=== PATIENT | female | born 1975 ===

== ENCOUNTER 2020-04-22 07:50 | Observation (INO) | payer OTHER, SELFPAY ==
[2020-04-22] VITALS (18 sets, daily range): BP systolic 109–140; BP diastolic 67–87; PULSE 67–98; RESP 13–18; TEMP 36.1–36.7; O2SAT 93–100; BMI 36.3
--- NOTE | 2020-04-22 | PATH_ITS ---
[facility] Accession Number: [id number] . 01 Material submitted: . hernia - UMBILICAL HERNIA SAC . 01 Clinical history: . ABDOMINAL HERNIA CAUSING A LOT OF PAIN . 02 Diagnosis: Umbilical Hernia Sac, Biopsy: Fibrovascular and adipose tissue consistent with hernia sac. [facility] 04/25/2020 1626 Local . 02 Electronically signed: . Marah Spivey MD, Pathologist NPI- [id number] . 01 Gross description: . Received in formalin, labeled umbilical hernia sac, and consists of a 6.0 x 5.5 x 2.2 cm mensah-pink fragment of soft tissue with attached mensah-yellow lobulated adipose tissue. Industrial [employer] sections are submitted in cassette A1. (EA/[id number]) /MRV 04/24/2020 1426 Local . 02 Pathologist provided ICD-10: K42.9 . 02 CPT . 603267 Performed at: 01 [facility] [address] [facility], [place], [place] [id number] MD Eliazar Alcantara MD Phone: [phone] Performed at: 02 [facility] [address] [place], [place] [id number] MD Marah Spivey MD Phone: [phone]
--- NOTE | 2020-04-22 07:55 | ED.ABDPAIN ---
HPI - Abdominal Pain General Chief Complaint: Abdominal Pain Stated Complaint: Abdominal hernia causing a lot of pain Time Seen by Provider: 04/22/20 07:55 Source: patient and family Mode of arrival: Ambulatory Limitations: no limitations History of Present Illness HPI narrative: 44-year-old female nonsmoker with longstanding history of an umbilical hernia presents with a chief complain of a day or 2 of increasing, now severe umbilical pain along with nausea and decreased bowel movements. She has had no fever chills and denies any vomiting. Her pain is worse with motion and improves with rest. She states has never caused her trouble before and has never received in evaluation for hernia. Her only abdominal surgery previously is a laparoscopic evaluation of an ovarian cyst. She has had 6 children, but all vaginally. She has been NPO since 8:00 p.m.. MD complaint: abdominal pain Onset (ago): hour(s) Pain Consistency: constant Location: periumbilical Severity: severe Severity scale (1-10): 10 Quality: cramping, stabbing and aching Radiation: none Migration to: no migration Relieving factors: nothing Exacerbating factors: nothing Associated symptoms: denies other symptoms Related Data Previous Rx's Medication Instructions Recorded acetaminophen [Tylenol] 650 mg PO QID PRN #60 cap 04/22/20 oxycodone 5 mg PO Q6H PRN #30 tab 04/22/20 Allergies Allergy/AdvReac Type Severity Reaction Status Date / Time No Known Drug Allergies Allergy Verified 04/22/20 08:31 Review of Systems Constitutional Constitutional: Denies chills, Denies fatigue, Denies fever(s), Denies frequent falls, Denies lethargy and Denies weakness Eyes Eyes: Denies change in vision, Denies eye discharge, Denies irritation and Denies loss of vision ENT Ears, Nose, Mouth, and Throat: Denies change in voice, Denies dizziness, Denies neck pain, Denies sore throat and Denies throat swelling Cardiovascular Cardiovascular: Denies chest pain, Denies irregular heart rhythm, Denies lightheadedness, Denies palpitations, Denies dyspnea, Denies dyspnea on exertion and Denies orthopnea Respiratory Respiratory: Denies cough, Denies dyspnea, Denies dyspnea on exertion and Denies wheezing Gastrointestinal Gastrointestinal: Reports abdominal pain, Denies change in bowel habits, Denies diarrhea, Reports nausea and Denies vomiting Musculoskeletal Musculoskeletal: Denies neck pain and Denies numbness Integumentary/Breasts Skin/Breast: Denies pruritus, Denies erythema, Denies rash and Denies wounds Neurologic Neurologic: Denies behavioral changes, Denies confusion, Denies dizziness, Denies frequent falls, Denies loss of vision, Denies numbness and Denies weakness Psychiatric Psychiatric: Denies anxiety, Denies behavioral changes, Denies confusion, Denies depression, Denies homicidal ideation and Denies suicidal ideation Endocrine Endocrine: Denies fatigue, Denies flushing and Denies palpitations Hematologic/Lymphatic Hematologic/Lymphatic: Denies easy bruising Allergic/Immunologic Allergic/Immunologic: Denies urticaria, Denies throat swelling and Denies wheezing Patient History Social History Smoking Status: Never smoker Smoking Status: Never smoker alcohol intake frequency: 0-2 drinks per day Substance Use Type: does not use Exam Narrative Exam Narrative: GENERAL: [44] year old patient appears stated age. Well-nourished, well-developed patient, in mild distress. Obviously in pain HEAD: Atraumatic. Normocephalic. EYES: Pupils equal round and reactive. Extraocular motions intact. No scleral icterus. No injection or drainage. ENT: Nose without bleeding, purulent drainage. Throat without erythema, tonsillar hypertrophy or exudate. Airway patent. NECK: Trachea midline. Non tender CARDIOVASCULAR: Regular rate and rhythm without murmurs, gallops, or rubs. RESPIRATORY: Clear to auscultation. Breath sounds equal bilaterally. No wheezes, rales, or rhonchi. GASTROINTESTINAL: Abdomen soft, non reducible periumbilical hernia, incredibly tender, mild overlying erythema., nondistended. EXTREMITIES: No edema or joint tenderness. BACK: Nontender without deformity or crepitance. No flank tenderness. NEURO: AOx3. SKIN: No rash or erythema of visible areas Initial Vital Signs Initial Vital Signs: Vital Signs Pulse Rate 88 04/22/20 07:58 Pulse Oximetry 99 04/22/20 07:58 Course Orders Ordered: ED Orders 04/22/20 07:58 XR acute abdomen series Stat 04/22/20 08:24 Basic Metabolic Panel Stat Complete Blood Count AUTO DIFF Stat Lactate (Lactic Acid) Stat 04/22/20 08:59 CT abdomen pelvis w con Stat 04/22/20 09:31 COVID19 -ED/INPAT/OR/L&D Stat Fentanyl (Sublimaze) 0 mcg IV Q5M PRN PRN Reason: Pain, Severe (7-10) Fentanyl (Sublimaze) 0 mcg IV Q5M PRN PRN Reason: Pain, Moderate (4-6) Fentanyl (Sublimaze) 0 mcg IV Q5MIN PRN PRN Reason: Pain, Mild (1-3) Lactated Ringer's (Lactated Ringers) 1,000 mls @ 42 mls/hr IV CONT MANUEL Last Admin: 04/22/20 11:20 Dose: 42 mls/hr Documented by: ENRIQUE Meperidine HCl (Demerol) 12.5 mg IV PACUNOW PRN PRN Reason: Mild pain or shivering Metoclopramide HCl (Reglan) 10 mg IV NOW PRN PRN Reason: Nausea And Vomiting Last Admin: 04/22/20 12:45 Dose: 10 mg Documented by: ENRIQUE Ondansetron HCl (Zofran) 4 mg IV NOW PRN PRN Reason: Nausea And Vomiting Last Admin: 04/22/20 12:45 Dose: 4 mg Documented by: ENRIQUE Oxycodone HCl (Percolone) 5 mg PO PACUNOW PRN PRN Reason: Mild or moderate pain Discontinued Medications Bupivacaine HCl (Sensorcaine 0.25% (Pf)) 30 ml INJ NOW ONE Stop: 04/22/20 11:44 Last Admin: 04/22/20 11:43 Dose: 20 ml Documented by: LAUREN Sodium Chloride (Normal Saline 0.9%) 1,000 mls @ 1,000 mls/hr IV BOLUS ONE Stop: 04/22/20 09:00 Last Infusion: 04/22/20 09:50 Dose: 0 mls/hr Documented by: Admin: 04/22/20 08:47 Dose: 1,000 mls/hr Documented by: AGUILAR Cefazolin Sodium/Dextrose (Ancef) 2 gm in 100 mls @ 200 mls/hr IV NOW ONE Stop: 04/22/20 11:43 Last Infusion: 04/22/20 11:29 Dose: 0 mls/hr Documented by: J LUIS Admin: 04/22/20 11:20 Dose: 200 mls/hr Documented by: J LUIS Acetaminophen (Ofirmev) 1,000 mg in 100 mls @ 400 mls/hr IV NOW ONE Stop: 04/22/20 11:59 Last Infusion: 04/22/20 12:09 Dose: 0 mls/hr Documented by: Admin: 04/22/20 11:45 Dose: 400 mls/hr Documented by: J LUIS Midazolam HCl (Versed) 2 mg IV NOW ONE Stop: 04/22/20 08:24 Last Admin: 04/22/20 08:47 Dose: 2 mg Documented by: AGUILAR Vital Signs Vital signs: Vital Signs - 8 hr 04/22/20 07:58 04/22/20 07:59 04/22/20 08:00 Temperature 98.0 F Pulse Rate 88 89 84 Respiratory Rate 16 Blood Pressure 140/87 Pulse Oximetry 99 99 99 04/22/20 08:46 04/22/20 08:50 04/22/20 08:58 Temperature Pulse Rate 74 73 84 Respiratory Rate Blood Pressure 113/70 110/69 Pulse Oximetry 99 98 98 04/22/20 09:00 04/22/20 09:30 04/22/20 10:00 Temperature Pulse Rate 77 77 67 Respiratory Rate Blood Pressure 109/67 Pulse Oximetry 95 100 99 04/22/20 10:30 Temperature Pulse Rate 71 Respiratory Rate Blood Pressure Pulse Oximetry 96 MDM - Abdominal Pain Lab Data Result diagrams: 04/22/20 08:24 04/22/20 08:24 Labs: Lab Results 04/22/20 04/22/20 04/22/20 Range/Units 08:24 08:24 08:24 WBC 8.8 (4.5-11.0) X10^3/uL RBC 4.06 (4.0-5.2) X10^6/uL Hgb 9.5 L (12.0-16.0) g/dL Hct 29.9 L (36-46) % MCV 73.6 L (80-100) fL MCH 23.5 L (26-34) PG MCHC 31.9 (30-36) % RDW 17.0 H (11.6-14.8) % Plt Count 323 (150-400) X10^3/uL Neut % (Auto) 69.0 (50-75) % Lymph % (Auto) 19.8 L (25-40) % [place] % (Auto) 6.1 (3-14) % Eos % (Auto) 4.6 H (2-4) % Baso % (Auto) 0.5 (0-2) % Neut # (Auto) 6100 (6335-1708) /uL Lymph # (Auto) 1700 (7579-2137) /uL [place] # (Auto) 500 (0-900) /uL Eos # (Auto) 400 (0-450) /uL Baso # (Auto) 0 (0-100) /uL Sodium 136 L (137-145) mmol/L Potassium 3.7 (3.4-5.1) mmol/L Chloride 103 (98-107) mmol/L Carbon Dioxide 26 (22-32) mmol/L BUN 14 (7-17) mg/dL Creatinine 0.65 (0.52-1.04) mg/dL Estimated GFR > 60.0 (>60) mL/min BUN/Creatinine Ratio 21.5 (6-22) Glucose 102 H (70-100) mg/dL Lactate 1.0 (0.7-2.1) mmol/L Calcium 8.8 (8.4-10.2) mg/dL COVID-19 PCR (Negative) 04/22/20 Range/Units 09:31 WBC (4.5-11.0) X10^3/uL RBC (4.0-5.2) X10^6/uL Hgb (12.0-16.0) g/dL Hct (36-46) % MCV (80-100) fL MCH (26-34) PG MCHC (30-36) % RDW (11.6-14.8) % Plt Count (150-400) X10^3/uL Neut % (Auto) (50-75) % Lymph % (Auto) (25-40) % [place] % (Auto) (3-14) % Eos % (Auto) (2-4) % Baso % (Auto) (0-2) % Neut # (Auto) (0313-9697) /uL Lymph # (Auto) (6573-8633) /uL [place] # (Auto) (0-900) /uL Eos # (Auto) (0-450) /uL Baso # (Auto) (0-100) /uL Sodium (137-145) mmol/L Potassium (3.4-5.1) mmol/L Chloride (98-107) mmol/L Carbon Dioxide (22-32) mmol/L BUN (7-17) mg/dL Creatinine (0.52-1.04) mg/dL Estimated GFR (>60) mL/min BUN/Creatinine Ratio (6-22) Glucose (70-100) mg/dL Lactate (0.7-2.1) mmol/L Calcium (8.4-10.2) mg/dL COVID-19 PCR Negative (Negative) Point of care testing: Urine Dip Bedside Urine Glucose Negative Bedside Urine Bilirubin - Negative Bedside Urine Ketone - Negative Urine Specific [place] 1.020 Bedside Urine Occult Blood + Bedside Urine pH 6.0 Bedside Urine Protein - Negative Bedside Urine Urobilinogen - Negative Bedside Urine Nitrite - Negative Bedside Urine Leukocytes - Negative Esterase Imaging Data CT scan - abdomen/pelvis: Radiologist's Impression: 4 DO Carmelo Sellers Patient Imaging - Claribel Oconnor 44 F 1975 ACTIVITY DATE EXAM STATUS AUTHOR 04/22/20 08:59 [place] 04/22/20 07:58 [place] [address] CT Scan Report Signed Patient: Aruna Oconnor#: [id number] : 1975Acct:[id number] Age/Sex: 44 / FDate of Service: 04/22/20 Loc: ED Accession Number: [id number] Procedure: CT abdomen pelvis w con Ordering Provider: Raciel Aleman D.O. PROCEDURE: CT ABDOMEN PELVIS W CON INDICATIONS: incarcerated umbilical hernia, failed reduction, per surger TECHNIQUE: After the administration of intravenous contrast, 5 mm thick sections acquired from the diaphragm to the symphysis. 5 mm coronal and sagittal reformats were acquired. For radiation dose reduction, the following was used: automated exposure control, adjustment of mA and/or kV according to patient size. COMPARISON: None. FINDINGS: Image quality: Excellent. ABDOMEN: Lung bases: Lung bases are clear. Heart size is normal. Solid organs: Liver is normal in size and enhancement. Gallbladder is unremarkable. Biliary system is non dilated. Pancreas enhances normally. Spleen is normal in size and enhancement. No adrenal nodules. Kidneys demonstrate normal size and enhancement, without hydronephrosis. There is a large exophytic fat containing tumor off the inferior tip of the left kidney, consistent with an angiomyolipoma which measures 3.9 by 5.2 x 3.8 cm. There is a Bosniak 2 large exophytic cyst posteriorly off the upper pole of the left kidney which measures approximately 8.5 x 8.8 x 9.7 cm. There is an anterior cyst in the same location off the left kidney which measures approximately 7.2 cm maximum diameter. Peritoneum and bowel: Bowel loops demonstrate normal wall thickness and caliber. No free fluid or air. Normal appendix. Nodes and vessels: No retroperitoneal or mesenteric adenopathy by size criteria. Aorta and inferior vena cava are normal in size. Miscellaneous: There is a periumbilical hernia containing fat and inflammatory change suggesting possible incarcerated fat. Slightly superior to this, in the mesenteric fat, to the right of midline, is an area inflammatory change in the fat, possibly representing an area of epiploic appendagitis. PELVIS: Genitourinary: Bladder wall thickness is normal. Miscellaneous: No inguinal hernias or adenopathy. Left adnexal cyst measuring 3.5 cm in diameter. Prominent endometrium, measuring approximately 2.3 cm in diameter. Bones: No suspicious bony lesions. No vertebral body compression fractures. IMPRESSION: 1. Periumbilical hernia with inflammatory change in the fat suggesting possible incarcerated fat. 2. Question area of epiploic appendagitis slightly inferior of the umbilicus and to the right of midline. 3. 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 This is of sufficient size for consideration of prophylactic embolization to decrease the risk of spontaneous hemorrhage. Consider interventional radiology consultation with Dr. Leal. 4. Prominent endometrial cavity. Comment: Findings were discussed with Dr. Aleman at the time of study dictation. Dictated by: Husam Leal M.D. on 04/22/2020 at 8:42 Approved by: Husam Leal M.D. on 04/22/2020 at 8:54 Discharge Plan Departure Patient Disposition: Admitted to Surgery Clinical Impression: Incarcerated umbilical hernia Discharge Date/Time: 04/22/20 11:10 Admit Date/Time: 04/22/20 11:08 Admit Provider: Donta Alas
--- NOTE | 2020-04-22 07:58 | DI.RAD.S_ITS ---
PROCEDURE: XR ACUTE ABDOMEN SERIES INDICATIONS: Abdominal pain, No BM TECHNIQUE: One view chest and two views of the abdomen were acquired. COMPARISON: None. FINDINGS: Surgical changes and devices: None. Chest: Lungs are clear. Heart size is normal. No pleural effusions. No pneumoperitoneum. Abdomen: Bowel gas pattern is normal. No suspicious calcifications. Visualized solid organ contours appear normal. Large amount of fecal debris. Bones: No suspicious bony lesions. IMPRESSION: 1. Large fecal load. 2. Normal bowel gas pattern. 3. No evidence acute pulmonary process. Dictated by: Husam Leal M.D. on 04/22/2020 at 7:43 Approved by: Husam Leal M.D. on 04/22/2020 at 7:44
[2020-04-22 08:44] LABS: Add Manual Diff / Slide Review NO; Basophils Absolute Auto 0 /uL (0-100); Basophils Percent Auto 0.5 % (0-2); Eosinophils Absolute Auto 400 /uL (0-450); Eosinophils Percent Auto 4.6 % (2-4); Hematocrit 29.9 % (36-46); Hemoglobin 9.5 g/dL (12.0-16.0); Lymphocytes Absolute Auto 1700 /uL (1100-4500); Lymphocytes Percent Auto 19.8 % (25-40); Mean Corpuscular HGB Conc 31.9 % (30-36); Mean Corpuscular Hemoglobin 23.5 PG (26-34); Mean Corpuscular Volume 73.6 fL (80-100); Monocytes Absolute Auto 500 /uL (0-900); Monocytes Percent Auto 6.1 % (3-14); Neutrophils Absolute Auto 6100 /uL (1500-7000); Platelet Count 323 X10^3/uL (150-400); Red Blood Cell Count 4.06 X10^6/uL (4.0-5.2); White Blood Cell Count 8.8 X10^3/uL (4.5-11.0)
[2020-04-22] MEDS: MIDAZOLAM 5 MG/ML VIAL 2 MG IV (08:47)
[2020-04-22] MEDS: SODIUM CHLORIDE 0.9% 1,000 ML 1000 ML IV (08:47)
[2020-04-22 08:54] LABS: BUN Creatinine Ratio 21.5 (6-22); Blood Urea Nitrogen 14 mg/dL (7-17); Calcium 8.8 mg/dL (8.4-10.2); Carbon Dioxide 26 mmol/L (22-32); Chloride 103 mmol/L (98-107); Estimated Glomerular Filt Rate > 60.0 mL/min (>60); Glucose 102 mg/dL (70-100); HEMOLYSIS < 15 (0-50); Potassium 3.7 mmol/L (3.4-5.1); Sodium 136 mmol/L (137-145)
--- NOTE | 2020-04-22 08:59 | DI.CT.S_ITS ---
PROCEDURE: CT ABDOMEN PELVIS W CON INDICATIONS: incarcerated umbilical hernia, failed reduction, per surger TECHNIQUE: After the administration of intravenous contrast, 5 mm thick sections acquired from the diaphragm to the symphysis. 5 mm coronal and sagittal reformats were acquired. For radiation dose reduction, the following was used: automated exposure control, adjustment of mA and/or kV according to patient size. COMPARISON: None. FINDINGS: Image quality: Excellent. ABDOMEN: Lung bases: Lung bases are clear. Heart size is normal. Solid organs: Liver is normal in size and enhancement. Gallbladder is unremarkable. Biliary system is non dilated. Pancreas enhances normally. Spleen is normal in size and enhancement. No adrenal nodules. Kidneys demonstrate normal size and enhancement, without hydronephrosis. There is a large exophytic fat containing tumor off the inferior tip of the left kidney, consistent with an angiomyolipoma which measures 3.9 by 5.2 x 3.8 cm. There is a Bosniak 2 large exophytic cyst posteriorly off the upper pole of the left kidney which measures approximately 8.5 x 8.8 x 9.7 cm. There is an anterior cyst in the same location off the left kidney which measures approximately 7.2 cm maximum diameter. Peritoneum and bowel: Bowel loops demonstrate normal wall thickness and caliber. No free fluid or air. Normal appendix. Nodes and vessels: No retroperitoneal or mesenteric adenopathy by size criteria. Aorta and inferior vena cava are normal in size. Miscellaneous: There is a periumbilical hernia containing fat and inflammatory change suggesting possible incarcerated fat. Slightly superior to this, in the mesenteric fat, to the right of midline, is an area inflammatory change in the fat, possibly representing an area of epiploic appendagitis. PELVIS: Genitourinary: Bladder wall thickness is normal. Miscellaneous: No inguinal hernias or adenopathy. Left adnexal cyst measuring 3.5 cm in diameter. Prominent endometrium, measuring approximately 2.3 cm in diameter. Bones: No suspicious bony lesions. No vertebral body compression fractures. IMPRESSION: 1. Periumbilical hernia with inflammatory change in the fat suggesting possible incarcerated fat. 2. Question area of epiploic appendagitis slightly inferior of the umbilicus and to the right of midline. 3. 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 This is of sufficient size for consideration of prophylactic embolization to decrease the risk of spontaneous hemorrhage. Consider interventional radiology consultation with Dr. Leal. 4. Prominent endometrial cavity. Comment: Findings were discussed with Dr. Aleman at the time of study dictation. Dictated by: Husam Leal M.D. on 04/22/2020 at 8:42 Approved by: Husam Leal M.D. on 04/22/2020 at 8:54
[2020-04-22 09:53] LABS: COVID19 -Nasal RAPID Negative (Negative)
--- NOTE | 2020-04-22 11:09 | PM.HP.1 ---
History of Present Illness History of Present Illness Date Patient Seen: 04/22/20 Time Patient Seen: 11:09 Chief complaint: Abdominal hernia causing a lot of pain Narrative: 44-year-old woman evaluated for a incarcerated umbilical hernia. Umbilical hernia present for the past at 18 years however today and it became increasingly painful. In the emergency room she underwent a CT abdomen pelvis which demonstrates a umbilical hernia with some inflammatory changes no bowel observed within the hernia. An attempt was made to manual reduction with conscious sedation which was unsuccessful. Medical history is significant for prior transverse incision laparotomy for hemorrhagic cyst and obesity. Patient History Family & Social History Safety & Behavioral: Feels Safe in Current Yes Environment Been Physically Hurt or No Threatened By a Person Tobacco & Substance use: Smoking Status Never smoker alcohol intake frequency 0-2 drinks per day Substance Use Type does not use Meds Home Medications and Allergies Allergies Allergy/AdvReac Type Severity Reaction Status Date / Time No Known Drug Allergies Allergy Verified 04/22/20 08:31 Review of Systems Review of Systems ROS: Yes All systems reviewed with the patient and are negative except as otherwise documented Exam Vital Signs (past 8 hours): - 04/22/20 07:58 04/22/20 07:59 04/22/20 08:00 Temperature 98.0 F Pulse Rate 88 89 84 Respiratory Rate 16 Blood Pressure 140/87 Pulse Oximetry 99 99 99 04/22/20 08:46 04/22/20 08:50 04/22/20 08:58 Temperature Pulse Rate 74 73 84 Respiratory Rate Blood Pressure 113/70 110/69 Pulse Oximetry 99 98 98 04/22/20 09:00 04/22/20 09:30 04/22/20 10:00 Temperature Pulse Rate 77 77 67 Respiratory Rate Blood Pressure 109/67 Pulse Oximetry 95 100 99 04/22/20 10:30 Temperature Pulse Rate 71 Respiratory Rate Blood Pressure Pulse Oximetry 96 Oxygen Delivery Method Room Air Narrative Exam Narrative: Gen-Adult female AO x 3 Chest-Non labored resp Cardiac-RRR Abdomen-Incacerated umbilical hernia unable to manually reduce tender to palpation Ext-WWP Objective Labs Result Diagrams: 04/22/20 08:24 04/22/20 08:24 Labs: Laboratory Results - last 24 hr 04/22/20 04/22/20 04/22/20 08:24 08:24 08:24 WBC 8.8 RBC 4.06 Hgb 9.5 L Hct 29.9 L MCV 73.6 L MCH 23.5 L MCHC 31.9 RDW 17.0 H Plt Count 323 Neut % (Auto) 69.0 Lymph % (Auto) 19.8 L [place] % (Auto) 6.1 Eos % (Auto) 4.6 H Baso % (Auto) 0.5 Neut # (Auto) 6100 Lymph # (Auto) 1700 [place] # (Auto) 500 Eos # (Auto) 400 Baso # (Auto) 0 Sodium 136 L Potassium 3.7 Chloride 103 Carbon Dioxide 26 BUN 14 Creatinine 0.65 Estimated GFR > 60.0 BUN/Creatinine Ratio 21.5 Glucose 102 H Lactate 1.0 Calcium 8.8 COVID-19 PCR 04/22/20 09:31 WBC RBC Hgb Hct MCV MCH MCHC RDW Plt Count Neut % (Auto) Lymph % (Auto) [place] % (Auto) Eos % (Auto) Baso % (Auto) Neut # (Auto) Lymph # (Auto) [place] # (Auto) Eos # (Auto) Baso # (Auto) Sodium Potassium Chloride Carbon Dioxide BUN Creatinine Estimated GFR BUN/Creatinine Ratio Glucose Lactate Calcium COVID-19 PCR Negative Assessment & Plan Assessment & Plan narrative: 44-year-old female history of obesity here with an incarcerated umbilical hernia. Unable to reduce hernia with conscious sedation recommended that we proceed to the operating room for an open umbilical hernia repair possibly with mesh. We discussed technical nature of the operation including the operative risks of bleeding infection recurrence damage to surrounding structures. Questions have been answered she is in agreement with this plan and will proceed to the operating room COVID-19 COVID-19 status: Negative
[2020-04-22] MEDS: LACTATED RINGERS 1,000 ML 42 ML IV (11:20)
[2020-04-22] MEDS: CEFAZOLIN 2 GM/100 ML FROZ.PIGGY IV (11:20)
--- NOTE | 2020-04-22 11:38 | SUR.OPER ---
Supine on padded OR bed, head on pillow, arms secured on padded arm boards at <90 degrees abduction, legs uncrossed, safety belt at thigh, tape over blanket over lower legs.
[2020-04-22] MEDS: BUPIVACAINE 0.25% (PF) VIAL 30 ML INJ (11:43)
[2020-04-22] MEDS: ACETAMINOPHEN IV 1,000 MG/100 ML VIAL 400 MG IV (11:45)
--- NOTE | 2020-04-22 12:37 | PM.OP.1 ---
Operative Date/Time/Diagnoses Date of procedure: 04/22/20 Time of procedure: 12:37 Pre-op diagnosis: Incarcerated umbilical hernia Post-op diagnosis: same Procedure & Clinicians Procedure: Open umbilical hernia repair with mesh of incarcerated umbilical hernia Same procedure as scheduled: Yes Indications: 44-year-old woman with a chronic umbilical hernia presents with acute incarceration abdominal pain Surgeon: Donta Alas Anesthesia Type: General Operative Notes Findings: ischemic omentum within the hernia sac Specimen(s): other (The umbilical sac) Estimated Blood Loss (mL): 20 Procedure in detail: Patient was brought to the operating room placed supine on the table. Bilateral lower extremity compression devices were applied. General anesthesia was induced and they were intubated with an endotracheal tube. They received 2 g of Ancef prior to skin incision. They were prepped and draped in sterile fashion. A time-out was performed. A curvilinear incision was made inferior to the umbilicus. The subcutaneous tissues were divided. The umbilical hernia was identified and the hernia sac was dissected off the umbilicus and circumferentially off of the fascia defect. The hernia contained ischemic omentum. The hernia sac was ligated below the ischemic omentum and this was transected passed off the field as umbilical hernia sac. Using blunt dissection I carefully carefully freed the hernia sac from the underline peritoneum. The proximal portion of the umbilical sac reduced spontaneously into the abdomen. The fascia was cleared from it overlaying subcutaneous tissue in order to accommodate the mesh. The main fascia defect was 3 cm in maximal diameter. The fascia edges were then reapproximated with a [id number] 0 PDS suture. A Bard Ventralex ST hernia patch 6.3 cm was inserted over the fascia defect. It was secured to the fascia using 0 Prolene suture in interrupted fashion in all 4 quadrants. The subcutaneous tissues were reapproximated using 3 0 Vicryl skin closed with 4 0 Monocryl upon by the application of Dermabond and Steri-Strips. Sponge instrument count at the end of the operation was correct. Patient tolerated procedure well was extubated and transferred to postoperative care unit in stable condition. Complications: none Post-operative Condition: stable Disposition: same day surgery
[2020-04-22] MEDS: METOCLOPRAMIDE 10 MG/2 ML INJ IV (12:45)
[2020-04-22] MEDS: ONDANSETRON 4 MG/2 ML INJ IV (12:45)
[2020-04-22] MEDS: OXYCODONE IR 5 MG TABLET PO (13:04)
== END 2020-04-22 13:37 | disposition home or self-care (01) ==
LOC: ED 11:05 → AC 11:09
PROVIDERS: Admitting Provider Surgery; Emergency Provider Emergency Medicine; Referring Provider Emergency Medicine; Visit Provider Surgery
PROC: (CPT 49587; principal; 2020-04-22 11:45)
DX: K42.0 Umbilical hernia with obstruction, without gangrene (principal); Z11.59 Encounter for screening for other viral diseases
CPT/HCPCS: 49587; 36415; 74022; 74177; 80048; 81003; 83605; 85025; 87635; 96361; 96374; 96375; 99219; 99284; C1781; G0378; J0131; J0330; J0690; J1100; J1885; J2250; J2405; J2704; J2765; J3010; Q9967

== ENCOUNTER 2022-06-17 16:46 | Emergency (ER) | payer OTHER, SELFPAY ==
[2022-06-17 16:51] VITALS: BP 146/70; PULSE 77; RESP 18; TEMP 36.7; O2SAT 100
--- NOTE | 2022-06-17 20:00 | DI.CT.S_ITS ---
PROCEDURE: CT ANGIO HEAD AND NECK INDICATIONS: worst headache of life after carrying heavy box TECHNIQUE: Pre-contrast 4.5 mm thick sections acquired from the foramen magnum to the vertex. After the administration of intravenous contrast, 1 mm thick sections acquired from the aortic arch through the [place] of [place]. Post-contrast 4.5 mm thick sections then re-acquired from the foramen magnum to the vertex. 3-dimensional [id number]-lxhwswakqv (MIP) and/or volume rendering reformats were acquired of the central intracranial vasculature and neck separately. For radiation dose reduction, the following was used: automated exposure control, adjustment of mA and/or kV according to patient size. COMPARISON: None. FINDINGS: Image quality: Excellent. BRAIN: CSF spaces: Ventricles are normal in size and shape. Basal cisterns are patent. No extra-axial fluid collections. Brain: No midline shift. No intracranial bleeds or masses. Dias-white matter interface appears intact. No abnormal intracranial enhancement. Skull and face: Calvarium and facial bones appear intact, without suspicious lesions. Orbits appear normal. Sinuses: Sinuses and mastoids are clear. HEAD CT ANGIOGRAPHY: Anterior circulation: Intracranial internal carotid arteries are normal in size and flow. The flow within the paired anterior cerebral arteries is normal and symmetric. The flow within the middle cerebral arteries is normal and symmetric. The anterior communicating artery is seen. No aneurysms are seen. Posterior circulation: Visualized portions of the vertebral arteries demonstrate normal caliber, and join to form a normal appearing basilar artery. Flow within the posterior cerebral arteries is normal and symmetric. No aneurysms are seen. NECK CT ANGIOGRAPHY: Carotid system: The great vessels demonstrate a conventional anatomy as they arise from the aortic arch. The origins of the common carotid arteries appear patent. The common carotid arteries demonstrate normal caliber and courses. The bifurcation regions are both widely patent. The internal carotid arteries demonstrate normal calibers and courses. Posterior circulation: The origins of the vertebral arteries both appear widely patent. The more superior extracranial portions of both vertebral arteries also demonstrate normal courses and calibers. They join to form a normal appearing basilar artery. Soft tissues: Visualized neck soft tissues demonstrate no suspicious abnormalities. Bones: No suspicious bony lesions. Visualized cervical spine appears normally aligned. IMPRESSION: 1. No acute intracranial abnormality. 2. No high grade stenosis or occlusion of the central intracranial arteries or head and neck arteries. 3. No evidence of cerebral aneurysm. Any quantitative measurements of stenosis were performed using NASCET criteria. Dictated by: Eliazar Schneider M.D. on 06/17/2022 at 21:34 Approved by: Eliazar Schneider M.D. on 06/17/2022 at 21:44
--- NOTE | 2022-06-17 20:06 | ED_ITS ---
HPI - Headache General Chief Complaint: Headache Stated Complaint: headache after carrying a heavy box Time Seen by Provider: 06/17/22 19:46 Mode of arrival: Ambulatory History of Present Illness HPI Narrative: Patient is a healthy 46-year-old female with no past medical history presenting today with persistent headache. She said she got the worse headache of her life yesterday after caring a heavy box across a parking lot. She said it was in the back of her head. She felt extreme pressure and pain. She just waited for it to go away she had no nausea vomiting numbness tingling or weakness. She is not on any anti-platelet or anticoagulation medication. At today she noted while she was in the shower she bent out today for legs and she could not state every long the pressure in her head was getting worse. She overall does not feel very well. She did not take any medication for it. Related Data Previous Rx's Medication Instructions Recorded acetaminophen 325 mg capsule 650 mg PO QID PRN pain #60 caps 04/22/20 (Tylenol) oxycodone 5 mg tablet 5 mg PO Q6H PRN pain #30 tabs 04/22/20 Allergies Allergy/AdvReac Type Severity Reaction Status Date / Time No Known Drug Allergies Allergy Verified 05/09/20 13:18 Review of Systems Review of Systems Narrative: GENERAL: Denies chills, fatigue, malaise, fever, sweats, travel HEENT: Denies sinus pain, ear pain, sore throat, difficulty swallowing, neck pain RESPIRATORY: Denies dyspnea, cough, wheezing, hemoptysis, sputum. CARDIOVASCULAR: Denies chest pain, palpitations, orthopnea, edema GASTROINTESTINAL: Denies nausea, vomiting, abdominal pain, diarrhea, constipation, melena. : Denies dysuria, frequency, incontinence, hematuria, urinary retention, flank pain. MUSCULOSKELETAL: Denies weakness, joint pain, or bony pain SKIN: No rash, no erythema, no pruritus NEUROLOGIC: See HPI PSYCHIATRIC: No concerning psychosocial issues. 12 point review of systems is negative except for those stated above and HPI Patient History Social History Smoking Status: Never smoker Smoking Status: Never smoker alcohol intake frequency: 0-2 drinks per day Substance Use Type: does not use Exam Initial Vital Signs Initial Vital Signs: Vital Signs Temperature 98.1 F 06/17/22 16:51 Pulse Rate 77 06/17/22 16:51 Respiratory Rate 18 06/17/22 16:51 Blood Pressure 146/70 H 06/17/22 16:51 Pulse Oximetry 100 06/17/22 16:51 Oxygen Delivery Method 06/17/22 16:51 GENERAL: Alert pleasant 6-year-old female and in no acute distress. HEENT: Head atraumatic,EOMI, pupils reactive, face symmetric, moist mucous membranes CARDIOVASCULAR: Regular rate and rhythm without murmurs, rubs or gallops. RESPIRATORY: Breath sounds equal bilaterally, no wheezes rales or rhonchi. ABDOMEN: Soft, nontender. Normoactive bowel sounds all 4 quadrants. No guarding or rebound. EXTREMITIES: Normal range of motion, no clubbing or edema. Neurovascularly intact NEUROLOGICAL: Alert and oriented x4.Normal gait and speech. Garment Fitter strength equal bilaterally lower extremity strength equal face is symmetric SKIN: Warm, dry, no laceration, no petechiae, no rashes or lesions. Scores NIH Stroke Scale Level of Conciousness: Alert, keenly responsive Ask month/age: Answers both questions correctly. Open/close eyes, close hand: Performs both tasks correctly Best gaze horizontal: Normal Visual keller: No visual loss Facial palsy: Normal symetrical movement Left arm drift: No drift for full 10 sec Right arm drift: No drift for full 10 sec Left leg drift: No drift for full 5 sec Right leg drift: No drift for full 5 sec Limb ataxia: Absent Sensory on face/arms/legs: Normal, no sensory loss Best language: No aphasia, normal Dysarthria: Normal Extinction or inattention: No abnormality Total NIH Stroke scale score: 0 Course Orders Ordered: ED Orders 06/17/22 20:00 CT angio head and neck Stat 06/17/22 20:13 CBC Auto Diff [Complete Blood Count AUTO DIFF] Stat CMP [Comprehensive Metabolic Panel] Stat Discontinued Medications Ketorolac Tromethamine (Ketorolac 30 Mg/Ml Vial) 15 mg IV NOW ONE Stop: 06/17/22 22:24 Last Admin: 06/17/22 22:30 Dose: 15 mg Documented By: LEONILA Morphine Sulfate (Morphine 2 Mg/Ml Inj) 2 mg IV NOW ONE Stop: 06/17/22 20:01 Ondansetron HCl (Ondansetron 4 Mg/2 Ml Inj) 4 mg IV NOW ONE Stop: 06/17/22 20:01 Vital Signs Vital signs: Vital Signs - 8 hr 06/17/22 20:15 06/17/22 20:30 06/17/22 22:19 Pulse Rate 71 79 Blood Pressure 128/70 127/74 127/74 Pulse Oximetry 100 100 Oxygen Delivery Method Room Air Room Air MDM - Headache Lab Data Result diagrams: 06/17/22 20:13 06/17/22 20:13 Labs: Lab Results 06/17/22 06/17/22 Range/Units 20:13 20:13 WBC 8.6 (4.5-11.0) X10^3/uL RBC 4.44 (4.0-5.2) X10^6/uL Hgb 8.8 L (12.0-16.0) g/dL Hct 29.2 L (36-46) % MCV 65.6 L (80-100) fL MCH 19.7 L (26-34) PG MCHC 30.1 (30-36) % RDW 18.9 H (11.6-14.8) % Plt Count 371 (150-400) X10^3/uL Neut % (Auto) 61.3 (50-75) % Lymph % (Auto) 26.0 (25-40) % Dillon % (Auto) 5.5 (3-14) % Eos % (Auto) 6.9 H (2-4) % Baso % (Auto) 0.3 (0-2) % Neut # (Auto) 5300 (7134-2369) /uL Lymph # (Auto) 2200 (8369-1655) /uL Dillon # (Auto) 500 (0-900) /uL Eos # (Auto) 600 H (0-450) /uL Baso # (Auto) 0 (0-100) /uL Platelet Estimate Adequate on smear RBC Morphology See below Hypochromasia 1+ H Anisocytosis 1+ H Microcytosis 2+ H Sodium 138 (137-145) mmol/L Potassium 3.2 L (3.4-5.1) mmol/L Chloride 102 (98-107) mmol/L Carbon Dioxide 24 (22-32) mmol/L BUN 10 (7-17) mg/dL Creatinine 0.54 (0.52-1.04) mg/dL Estimated GFR > 60 (>60) mL/min BUN/Creatinine Ratio 18.5 (6-22) Glucose 136 H (70-100) mg/dL Calcium 8.8 (8.4-10.2) mg/dL Total Bilirubin 0.3 (0.2-1.3) mg/dL AST 21 (14-36) IU/L ALT 22 (<35) IU/L Alkaline Phosphatase 70 (38-126) U/L Total Protein 8.4 H (6.3-8.2) g/dL Albumin 4.4 (3.5-5.0) g/dL Globulin 4.0 (1.7-4.1) g/dL Albumin/Globulin Ratio 1.1 (1.0-2.8) Imaging Data CTA - brain/neck: Radiologist's Impression: CT Scan Report Signed Patient: Claribel Oconnor MR#: [id number] : 1975 Acct:[id number] Age/Sex: 46 / F Date of Service: 06/17/22 Loc: Accession Number: [id number] ?? Procedure: CT angio head and neck Ordering Provider: Katerina Coppola D.O. PROCEDURE:? CT ANGIO HEAD AND NECK ? INDICATIONS:? worst headache of life after carrying heavy box ? TECHNIQUE:? Pre-contrast 4.5 mm thick sections acquired from the foramen magnum to the vertex.? After the administration of intravenous contrast, 1 mm thick sections acquired from the aortic arch through the [place] of [place].? Post-contrast 4.5 mm thick sections then re- acquired from the foramen magnum to the vertex.? 3-dimensional maximum-intensity- projection (MIP) and/or volume rendering reformats were acquired of the central intracranial va sculature and neck separately. For radiation dose reduction, the following was used:? automated exposure control, adjustment of mA and/or kV according to patient size.? ? COMPARISON:? None. ? FINDINGS:? Image quality:? Excellent.? ? BRAIN:? CSF spaces:? Ventricles are normal in size and shape.? Basal cisterns are patent.? No extra-axial fluid collections.? ? Brain:? No midline shift.? No intracranial bleeds or masses.? Dias-white matter interface appears intact.? No abnormal intracranial enhancement. ? Skull and face:? Calvarium and facial bones appear intact, without suspicious lesions.? Orbits appear normal.? ? Sinuses:? Sinuses and mastoids are clear.? ? HEAD CT ANGIOGRAPHY:? Anterior circulation:? Intracranial internal carotid arteries are normal in size and flow.? The flow within the paired anterior cerebral arteries is normal and symmetric.? The flow within the middle cerebral arteries is normal and symmetric.? The anterior communicating artery is seen.? No aneurysms are seen.? ? Posterior circulation:? Visualized portions of the vertebral arteries demonstrate normal caliber, and join to form a normal appearing basilar artery.? Flow within the posterior cerebral arteries is normal and symmetric.? No aneurysms are seen.? ? NECK CT ANGIOGRAPHY:? Carotid system:? The great vessels demonstrate a conventional anatomy as they arise from the aortic arch.? The origins of the common carotid arteries appear patent.? The common carotid arteries demonstrate normal caliber and courses.? The bifurcation regions are both widely patent.? The internal carotid arteries demonstrate normal calibers and courses.? ? Posterior circulation:? The origins of the vertebral arteries both appear widely patent.? The more superior extracranial portions of both vertebral arteries also demonstrate normal courses and calibers.? They join to form a normal appearing basilar artery.? ? Soft tissues:? Visualized neck soft tissues demonstrate no suspicious abnormalities.? ? Bones:? No suspicious bony lesions.? Visualized cervical spine appears normally aligned.? IMPRESSION:? ? 1. No acute intracranial abnormality. ? 2. No high grade stenosis or occlusion of the central intracranial arteries or head and neck arteries. ? 3. No evidence of cerebral aneurysm. ? Any quantitative measurements of stenosis were performed using NASCET criteria.? ? ? Dictated by: Eliazar Schneider M.D. on 06/17/2022 at 21:34 ? ? [facility] Narrative Medical decision making narrative: Patient is experiencing the worse headache of her left after caring heavy box. She was able to sleep last night she has not had any vomiting. However low bend ing down she had worsening pain. Blood work does show that she has some anemia she denies any blood loss. Previous hemoglobin is 9.5 hematocrit 29.9 in 2020 today's 8.8 and 29.2 so slightly chronic. She has MCV is 65.6. His she it has low MCV suggestive of microcytic possible iron deficiency. Recommend that she take [id number] is multi-vitamin and follow-up for more testing. This is not the cause of her headache. She has no focal deficits. CT angio does not show any evidence of aneurysm or subarachnoid hemorrhage. Her neck is mildly tender but she is afebrile no sign of meningitis. She is given medications here in the ED which did seem to help. Discharge Plan Departure Patient Disposition: Home Clinical Impression: Headache, Anemia Activity Restrictions/Additional Instructions: *You have been diagnosed with headache *What to do: You are anemic please have your blood levels followed recommend a multivitamin daily. *Continue to take medications as directed Tylenol 1000 mg every 6 hours if needed for [id number]-vetnfeek pain Motrin 600 mg every 6 hours if needed for [id number] pain *Follow up with your primary care provider in 2-3 days or call [phone] *Return to ER if you should have increasing pain persistent vomiting weakness numbness tingling difficulty speaking facial droop or any new, worsening or concerning symptoms Prescriptions: No Action oxycodone 5 mg tablet 5 mg PO Q6H PRN (Reason: pain) Qty: 30 0RF acetaminophen [Tylenol] 325 mg capsule 650 mg PO QID PRN (Reason: pain) Qty: 60 0RF Referrals: ProviderIrma [Primary Care Provider] - Visit Report Forms: Patient Portal/API
[2022-06-17 20:15] VITALS: BP 128/70
[2022-06-17 20:30] VITALS: BP 127/74; PULSE 71; O2SAT 100
[2022-06-17 20:39] LABS: Add Manual Diff / Slide Review NO; Basophils Absolute Auto 0 /uL (0-100); Basophils Percent Auto 0.3 % (0-2); Eosinophils Absolute Auto 600 /uL (0-450); Eosinophils Percent Auto 6.9 % (2-4); Hematocrit 29.2 % (36-46); Hemoglobin 8.8 g/dL (12.0-16.0); Lymphocytes Absolute Auto 2200 /uL (1100-4500); Mean Corpuscular HGB Conc 30.1 % (30-36); Mean Corpuscular Hemoglobin 19.7 PG (26-34); Mean Corpuscular Volume 65.6 fL (80-100); Monocytes Absolute Auto 500 /uL (0-900); Monocytes Percent Auto 5.5 % (3-14); Neutrophils Absolute Auto 5300 /uL (1500-7000); Neutrophils Percent Auto 61.3 % (50-75); Platelet Count 371 X10^3/uL (150-400); Red Blood Cell Count 4.44 X10^6/uL (4.0-5.2); Red Cell Distribution Width 18.9 % (11.6-14.8); White Blood Cell Count 8.6 X10^3/uL (4.5-11.0)
[2022-06-17 20:54] LABS: Alanine Aminotransferase 22 IU/L (<35); Albumin 4.4 g/dL (3.5-5.0); Albumin Globulin Ratio 1.1 (1.0-2.8); Alkaline Phosphatase 70 U/L (38-126); Aspartate Aminotransferase 21 IU/L (14-36); BUN Creatinine Ratio 18.5 (6-22); Bilirubin Total 0.3 mg/dL (0.2-1.3); Blood Urea Nitrogen 10 mg/dL (7-17); Calcium 8.8 mg/dL (8.4-10.2); Carbon Dioxide 24 mmol/L (22-32); Chloride 102 mmol/L (98-107); Estimated Glomerular Filt Rate > 60 mL/min (>60); Glucose 136 mg/dL (70-100); HEMOLYSIS < 15 (0-50); Potassium 3.2 mmol/L (3.4-5.1); Sodium 138 mmol/L (137-145); Total Protein 8.4 g/dL (6.3-8.2)
[2022-06-17 21:02] LABS: Anisocytosis 1+; Hypochromasia 1+; Microcytosis 2+; Platelet Estimate Adequate on smear
[2022-06-17 22:19] VITALS: BP 127/74; PULSE 79; O2SAT 100
[2022-06-17] MEDS: KETOROLAC 30 MG/ML VIAL 15 MG IV (22:30)
== END 2022-06-17 22:54 | disposition home or self-care (01) ==
PROVIDERS: Emergency Provider Emergency Medicine
DX: R51.9 Headache, unspecified (principal); D64.9 Anemia, unspecified
CPT/HCPCS: 36415; 70496; 70498; 80053; 85025; 96374; 99284; J1885; Q9967

== ENCOUNTER 2023-01-31 22:01 | Emergency (ER) | payer OTHER, SELFPAY ==
[2023-01-31 22:29] VITALS: BP 157/74; PULSE 88; RESP 15; TEMP 37.4; O2SAT 100; BMI 36.8
[2023-02-01 00:06] VITALS: BP 152/92; PULSE 85; RESP 18; O2SAT 99
--- NOTE | 2023-02-01 03:44 | ED.WOUNDLAC ---
HPI - Wound/Laceration General Chief Complaint: Wound/Laceration Stated Complaint: Left index finger injury Time Seen by Provider: 02/01/23 03:37 Source: patient Mode of arrival: Ambulatory History of Present Illness HPI narrative: Patient is a healthy 47-year-old female who presents today with left index finger laceration. She reports that she was cutting Styrofoam with a bread knife when she cut her finger. It is swollen and tender. No active bleeding. Hurts to bend it but is still able to bend it. Related Data Previous Rx's Medication Instructions Recorded acetaminophen 325 mg capsule 650 mg PO QID PRN pain #60 caps 04/22/20 (Tylenol) oxycodone 5 mg tablet 5 mg PO Q6H PRN pain #30 tabs 04/22/20 Allergies Allergy/AdvReac Type Severity Reaction Status Date / Time No Known Drug Allergies Allergy Verified 01/31/23 22:28 Review of Systems Review of Systems ROS Unobtainable: All systems reviewed & are unremarkable except as noted in HPI and below Patient History Social History Smoking Status: Never smoker Smoking Status: Never smoker alcohol intake frequency: 0-2 drinks per day Substance Use Type: does not use Exam Initial Vital Signs Initial Vital Signs: Vital Signs Temperature 99.3 F 01/31/23 22:29 Pulse Rate 88 01/31/23 22:29 Respiratory Rate 15 01/31/23 22:29 Blood Pressure 157/74 H 01/31/23 22:29 Pulse Oximetry 100 01/31/23 22:29 Oxygen Delivery Method Room Air 01/31/23 22:29 GENERAL: Well-appearing, well-nourished and in no acute distress. CARDIOVASCULAR: peripheral pulses in tact, cap refill <2 sec RESPIRATORY: No respiratory distress, speaks in full sentences without difficulty EXTREMITIES: Normal range of motion, no clubbing or edema. Neurovascularly intact NEUROLOGICAL: Cranial nerves II through XII grossly intact. Normal gait and speech. SKIN: Left index finger 2 cm laceration on dorsal side over PIP superficial has started to closed. There is some minor contusion. Course Vital Signs Vital signs: Vital Signs - 8 hr 02/01/23 00:06 02/01/23 04:07 Temperature 97.6 F Pulse Rate 85 70 Respiratory Rate 18 16 Blood Pressure 152/92 H 134/78 Pulse Oximetry 99 98 Oxygen Delivery Method Room Air Room Air MDM - Wound/Laceration MDM Narrative Medical decision making narrative: Patient has a laceration over the joint, easily repaired with Steri-Strips. No need for x-ray or sutures Discharge Plan Departure Patient Disposition: Home Clinical Impression: Laceration of left index finger Instructions: DI for Laceration Repair-Skin Closure Strips Activity Restrictions/Additional Instructions: *You have been diagnosed with left index finger laceration *What to do: At this time no sutures are indicated. Steri-Strips will fall off on their own. Keep hand clean and dry with soap and water. Avoid soaking, okay to shower and base *Continue to take medications as directed Tylenol Motrin as needed for pain *Follow up with your primary care provider in 2-3 days or call [phone] *Return to ER if you should have increasing redness swelling pain or any new, worsening or concerning symptoms Prescriptions: No Action oxycodone 5 mg tablet 5 mg PO Q6H PRN (Reason: pain) Qty: 30 0RF acetaminophen [Tylenol] 325 mg capsule 650 mg PO QID PRN (Reason: pain) Qty: 60 0RF Referrals: ProviderIrma [Primary Care Provider] - Stand Alone Forms: Patient Portal/API
[2023-02-01 04:07] VITALS: BP 134/78; PULSE 70; RESP 16; TEMP 36.4; O2SAT 98
== END 2023-02-01 04:08 | disposition home or self-care (01) ==
PROVIDERS: Emergency Provider Emergency Medicine
DX: S61.211A Laceration without foreign body of left index finger without damage to nail, initial encounter (principal); W26.0XXA Contact with knife, initial encounter
CPT/HCPCS: 99281; 99283